=== PATIENT | male | born 1990 | race Hispanic/Latino ===

== ENCOUNTER 2018-11-24 01:30 | Emergency (ER) | payer OTHER, SELFPAY ==
[2018-11-24] MEDS ORDERED: THIAMINE 200 MG/2 ML INJ ONE (01:50)
[2018-11-24] MEDS ORDERED: NA CHLORIDE 0.9% 2,000 ML ONE (01:50)
[2018-11-24] MEDS ORDERED: MULTIVITAMINS 10 ML VIAL (INJ) IV ONE (01:51)
[2018-11-24] MEDS ORDERED: FOLIC ACID 5 MG/ML VIAL ONE (01:52)
[2018-11-24 02:07] LABS: Absolute Lymphocytes (CBC) 5.3 K/uL (0.7-4.9); Absolute Monocytes 1.1 K/uL (0.1-1.3); Basophils % 0.3 % (0-1.3); Eosinophils % 2.7 % (0-4.4); Hematocrit 45.7 % (39.6-49.0); Lymphocytes % 49.8 % (15.3-44.8); MPV 10.1 fL (7.6-11.3); Monocytes % 9.9 % (3.3-12.3)
[2018-11-24 02:18] LABS: Potassium 3.3 mmol/L (3.5-5.1)
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
== END 2018-11-24 03:27 | disposition home or self-care (01) ==
LOC: ER 01:30
DX: Z04.1 Encounter for examination and observation following transport accident (principal); V49.9XXA Car occupant (driver) (passenger) injured in unspecified traffic accident, initial encounter; Z72.0 Tobacco use
CPT/HCPCS: 36415; 80048; 85025; 96365; 96366; 99284; J3411; J7030